=== PATIENT | female | born 1940 | race African-American/Black ===

== ENCOUNTER → 2017-05-20 | Outpatient (CLI) | payer MEDICARE, OTHER ==
[~2017-05-20] MED LIST: ALBU8.5H IH; COMBIH IH; DIPH-518 PO; ESTR1TAB17 PO; FLUT1DIS5 IH; LEVO750T21 PO; MONT10TA21 PO; OMEP20 PO; PRED10TA3 PO; SIMV40TA5 PO; TRI115O TP
[2017-05-20 13:32] VITALS: BP 110/62
== END | disposition home or self-care (01) ==
LOC: SRCNTR 12:50
PROVIDERS: ATTEND Internal Medicine Critical Care Medicine
DX: I10 Essential (primary) hypertension (principal); J44.1 Chronic obstructive pulmonary disease with (acute) exacerbation; J98.11 Atelectasis; E11.9 Type 2 diabetes mellitus without complications; J96.22 Acute and chronic respiratory failure with hypercapnia; J96.21 Acute and chronic respiratory failure with hypoxia; Z87.891 Personal history of nicotine dependence
CPT/HCPCS: G0463